=== PATIENT | male | born 1965 | race Caucasian/White ===

== ENCOUNTER → 2024-01-04 11:39 | Outpatient (REF) | payer BC, SELFPAY | LOC: HWRAD 11:39 | PROVIDERS: ATTENDING PHYSICIAN Specialist; FAMILY PHYSICIAN Family Medicine | DX: N20.1 Calculus of ureter (principal) | CPT/HCPCS: 74176 ==

== ENCOUNTER 2024-01-20 06:38 | Day surgery (SDC) | payer BC, SELFPAY ==
[2024-01-19 07:52] VITALS: BMI 35.6
[2024-01-19 09:02] LABS: Hematocrit 37.5 % (39.0-52.0); Hemoglobin 11.6 g/dL (13.0-18.0); Mean Corp Hgb Conc. 30.9 g/dL (33.0-37.0); Mean Corpuscular Hgb 23.6 pg (27.0-31.0); Mean Corpuscular Volume 76.2 fL (80.0-94.0); Platelet Count 295 10^3/uL (130-400); Red Blood Cell Count 4.92 10^6/uL (4.70-6.10); Red Cell Dist. Width 15.8 % (11.5-14.5); White Blood Cell Count 7.2 10^3/uL (4.8-10.8)
[2024-01-19 09:33] LABS: Blood Urea Nitrogen 21 mg/dl (9-20); Calcium 9.8 mg/dl (8.4-10.2); Carbon Dioxide 24 mmol/L (22-30); Chloride 104 mmol/L (98-107); Estimated Creatinine Clearance 94 ml/min; Glucose 144 mg/dl (70-99); Potassium 4.8 mmol/L (3.5-5.1); Sodium 140 mmol/L (135-145); eGFR > 60.00
[2024-01-20] VITALS (8 sets, daily range): BP systolic 96–117; BP diastolic 58–80; BMI 35.6
[2024-01-20 08:18] LABS: Glucose - Point of Care 159 mg/dl (70-99)
[2024-01-20] MEDS: NORMOSOL-R/PLASMALYTE-A 1000 IV (08:19)
[2024-01-20 10:04] LABS: Glucose - Point of Care 150 mg/dl (70-99)
== END 2024-01-20 11:37 | disposition home or self-care (01) ==
LOC: SDS 06:38
PROVIDERS: ATTENDING PHYSICIAN Specialist; FAMILY PHYSICIAN Family Medicine
DX: N20.0 Calculus of kidney (principal)
CPT/HCPCS: 52356; 36415; 74018; 76000; 80048; 82962; 85027; 93005; C1894; C2617